=== PATIENT | female | born 1950 | race Two or more races ===

== ENCOUNTER 2024-07-24 09:29 | Inpatient (IN) | payer MEDICARE, MEDICAID ==
[~2024-07-24] VITALS: Ht 167.6 cm; Wt 69.5 kg
[~2024-07-24 09:29] MED LIST: ACET-1080 PO; ALPR0.5T PO; APIX2.5T PO; CITA10TA8 PO; FAMO-161 PO; LOSA-534 PO; OMEP-448 PO; OMEP20TA PO; ROSU20TA14 PO
[2024-07-24] MEDS: TRANEXAMIC ACID 20 ML ONE (09:52)
[2024-07-24] MEDS: VANCOMYCIN HCL 1000 MG VL ONE (09:53)
[2024-07-24] MEDS ORDERED: fentaNYL CITRATE 100 MCG/2 ML VL ONE (10:08)
[2024-07-24] MEDS ORDERED: PROPOFOL 10 MG/ML 20 ML IV ONE ×2 (10:08→11:58)
[2024-07-24] MEDS ORDERED: MIDAZOLAM HCL 2MG/2ML 2ml VIAL (1mg/ml) ONE (10:08)
[2024-07-24] MEDS: ceFAZolin 2 GM/D5W100ml 100 ML IV ONE (10:09)
[2024-07-24] MEDS: CEFEPIME 1GM/ 50ML 50 ML IV ONE (10:13)
[2024-07-24] MEDS: ROPIVACAINE 0.5% (5MG/ML) 20ML AMPULE IJ ONE (10:40)
[2024-07-24] MEDS: SODIUM CHLORIDE 0.9% 1,000 ML IV SCH (11:30)
[2024-07-24] MEDS ORDERED: ALPRAZolam 0.5 MG TAB PO PRN (12:30)
[2024-07-24] MEDS ORDERED: ONDANSETRON HCL 4 MG/2 ML VIAL IV PRN (12:30)
--- NOTE | 2024-07-24 12:30 | DVHOP2 ---
Operative Report - 2 Report Details Date: 07/24/24 Preop Diagnosis: Right hip degenerative arthritis Postop Diagnosis: Same Surgeon: Layton Vasquez MD Aeronautical Design Engineer: Mouna MAC Anesthesiologist: Hiral Anesthesia: Regional Drains: Shiraz closed wound suction Implant: DatJoy hip size 13 stem, minus four neck length, 36 ceramic head, 50 acetabular shell with flat polyethylene liner Consent: The patient was informed of the risks and benefits of the procedure. These include but are not limited to complications of anesthesia, postoperative infection, incomplete relief of symptoms, recurrence of symptoms, damage to blood vessels, nerves and tendons, deep venous thrombosis, pulmonary embolism and possible need for repeat surgery in the future. Complications: none Estimated Blood Loss: 200 cc Fluids: See anesthesia record Findings: Denuded cartilage, eburnated bone, head deformity, osteophytes Indications for Surgery: Right hip degenerative arthritis with severe pain and functional impairment despite nonoperative management Name of Procedure Performed Right total hip arthroplasty Procedure Details Procedure Details: The patient was brought to the operating room and given spinal anesthetic with adequate analgesia obtained. The patient was positioned lateral decubitus with the operative side up, stabilized with hip positioners. Axillary roll applied and lower extremities well-padded. Preop patient received IV Ancef, cefepime and IV tranexamic acid. Surgical timeout was performed verifying patient, laterality and procedure. The hip and lower extremity were prepped and draped in sterile fashion. Incision was made over the greater trochanter. Subcutaneous dissection and hemostasis were performed with Bovie and aqua manti s. I identified the fascia which was incised with Bovie and Charnley retractor inserted. I identified the gluteus medius that was split at the junction of its anterior and middle thirds with Bovie then incised off the anterior greater trochanter. I incised the anterior gluteus minimus which was elevated off the capsule. I elevated the reflected head of the rectus. I then performed anterior capsulectomy with Bovie. I extended capsular incision posterior medially and superior laterally. The head was dislocated. Femoral neck cut was made with saw and head removed. Head diameter was calipered on the back table. I adjusted retractors to expose the acetabulum. I circumferentially removed labral tissue with Bovie. I removed foveal tissue with Bovie, curette and rongeur. I then began reaming sequentially paying attention to inclination and version as I went. I trialed which was stable so acetabular implant was brought into the field and tapped into the acetabulum with good fixation achieved. I then brought up the flat liner which was spun to make sure there was no soft tissue entrapment then tapped in and stability verified. I then brought my attention to the proximal femur. The leg was placed in the sterile bag anteriorly. I cleaned up soft tissue at the greater trochanter shoulder with Bovie. I then used a rongeur to clip the lateral neck. I then used a box osteotome, canal finder and lateralizing rasp. I sequentially broached to size 13. I trialed with a [0] neck length and [36] head which was stable. Intraoperative AP pelvis x-ray was obtained to verify length, offset and implant size. The hip was dislocated. Neck and head trial removed. I tapped down the stem little bit. I revised the femoral neck cut with calcar planer. broach was removed. I tapped in the femoral implant with good fixation achieved. I again trialed and decided on the minus four neck length based on stability and previous x-ray. I cleaned and dried the Otero taper and tapped on the ceramic head. The hip was again reduced and tested for stability which was good. I irrigated with xperience. I placed a 2 grams of vancomycin in the deep and superficial wound. I repaired the minimus and medius to the anterior greater trochanter with #[5] FiberWire in running fashion . I oversewed the repair with 0 Vicryl. I repaired the fascia with #1 Ethibond interrupted [id number]. Deep subcutaneous tissue was closed with 0 Vicryl. Superficial subcutaneous tissue was closed with 2-0 Vicryl. The skin was closed with toan. I then applied the Shiraz closed wound suction. Patient tolerated the procedure well and was brought to the recovery room in stable condition. Condition Stable Disposition Still a Patient LAYTON VASQUEZ MD Jul 24, 2024 12:30
[2024-07-24 12:42] VITALS: O2SAT 97
--- NOTE | 2024-07-24 12:42 | DVH ---
CLINICAL INDICATION: SURGERY TECHNIQUE: 1 radiographic views of the pelvis were obtained. Comparison: None FINDINGS/IMPRESSION: Status post right hip arthroplasty.
[2024-07-24] MEDS ORDERED: MEPERIDINE HCL (25 MG/ML) 1ML VIAL IV PRN (13:00)
[2024-07-24] MEDS: ONDANSETRON HCL 4 MG/2 ML VIAL IV ONE (13:00)
[2024-07-24] MEDS: ACETAMINOPHEN IV 100 ML IV ONE (13:02)
[2024-07-24] MEDS: HYDROmorphone HCL 2 MG/ML VL/or syr ONE (13:02)
[2024-07-24] MEDS: HYDROmorphone HCL 2 MG/ML VL/or syr IV PRN (13:05)
--- NOTE | 2024-07-24 13:35 | DVH ---
CLINICAL INDICATION: postop TECHNIQUE: XY PELVIS AP Comparison: None FINDINGS: There is no evidence of acute fracture or dislocation. Bilateral total hip arthroplasties. The alignment is anatomical. There is no radiopaque foreign body. IMPRESSION: Bilateral total hip arthroplasties. Postsurgical changes involving the right hip
[2024-07-24] MEDS: ACETAMINOPHEN IV 1000 MG/100ML (10MG/ML) IV PRN (13:37)
[2024-07-24 15:42] VITALS: BP 96/56; PULSE 63; RESP 19; TEMP 98.2; O2SAT 99
[2024-07-24 18:01] VITALS: BP 96/56; PULSE 63; RESP 19; TEMP 98.2; O2SAT 99
[2024-07-24] MEDS: KETOROLAC TROMETH 30 MG/ML 1ML VIAL IV SCH (18:20)
[2024-07-24] MEDS: ACETAMINOPHEN 325 MG TAB PO SCH (18:20)
[2024-07-24] MEDS: ceFAZolin 2 GM/D5W50ml 50 ML IV SCH (20:00)
[2024-07-24 21:00] VITALS: BP_SYST 82; BP_SYST 94; BP_DIAS 33; BP_DIAS 43; PULSE 65; RESP 17; TEMP 98.2; O2SAT 100
[2024-07-24 22:00] VITALS: BP 100/52
[2024-07-24] MEDS: ATORVASTATIN 20 MG TAB PO SCH (23:11)
[2024-07-24] MEDS: PREGABALIN 25 MG CAP PO SCH (23:12)
[2024-07-24 23:35] VITALS: BP 119/58
[2024-07-24] MEDS: oxyCODONE HCL 5MG TAB PO PRN ×2 (23:45)
[2024-07-25] VITALS (14 sets, daily range): BP systolic 8–111; BP diastolic 34–54; PULSE 61–84; RESP 15–18; TEMP 97.6–98.7; O2SAT 95–100
[2024-07-25] MEDS: SODIUM CHLORIDE 0.9% 500 ML IV ONE (05:00)
[2024-07-25 07:35] LABS: Basophils # (auto) 0 10 ^3/uL (0-0.2); Basophils % (auto) 0.4 % (0.0-2.0); Eosinophils # (auto) 0 10 ^3/uL (0-0.8); Eosinophils % (auto) 0.3 % (0.0-7.0); Hematocrit 31.5 % (36.0-46.0); Hemoglobin 10.6 g/dL (12.2-16.2); Lymphocytes # (auto) 0.8 10 ^3/uL (0.4-5.4); Lymphocytes % (auto) 12.2 % (10.0-50.0); Mean Corpuscular Hemoglobin 35.3 pg (28.0-32.0); Mean Corpuscular Hgb Conc. 33.6 g/dL (32.0-36.0); Mean Corpuscular Volume 105.1 fL (80.0-100.0); Monocytes # (auto) 0.9 10 ^3/uL (0-1.3); Neutrophils # (auto) 4.6 10 ^3/uL (1.6-8.6); Neutrophils % (auto) 73.1 % (37.0-80.0); Platelet Count (auto) 202 10^3/uL (140-450); Red Cell Distribution Width 14.2 % (11.8-14.3); White Blood Cell 6.3 10^3/uL (4.4-10.8)
[2024-07-25 07:39] LABS: Anion Gap 7 (5-15); Carbon Dioxide 24 mmol/L (20-31); Chloride 110 mmol/L (98-107); Potassium 3.5 mmol/L (3.5-5.1); Sodium 141 mmol/L (136-145)
[2024-07-25 07:40] LABS: Calcium 9.1 mg/dL (8.7-10.4)
[2024-07-25 07:45] LABS: BUN/Creatinine Ratio 15.4 (10.0-20.0); Blood Urea Nitrogen 12 mg/dL (9-23); Glucose 112 mg/dL (74-106)
[2024-07-25] MEDS: FAMOTIDINE 20 MG TAB PO SCH (09:40)
[2024-07-25] MEDS: CITALOPRAM HYDROBR 20 MG TAB PO SCH (09:42)
[2024-07-25] MEDS: PANTOPRAZOLE 40 MG TAB PO SCH (09:43)
[2024-07-25] MEDS: APIXABAN 2.5 MG TAB PO SCH (09:43)
[2024-07-25] MEDS: LOSARTAN POTASSIUM 50 MG TAB PO SCH (09:46)
--- NOTE | 2024-07-25 09:47 | DVHPN2 ---
Progress Note - Dictate Date Seen: Jul 25, 2024 Medical Necessity Reason Pt with a Central, PICC or Fol: No Subjective Patient was lying comfortably in bed during my evaluation reports some postoperative hip pain that was improved with the help of pain medication but given her low blood pressure has been limited on how much she is able to take and is currently in a lot of pain. Patient denies having gotten up and walked with physical therapy as of yet and has only tried performing gentle [id number] exercises while in bed which is limited due to the pain. Patient is otherwise feeling well denying any other complaints or concerns during my evaluation. vital signs Vital Sign Date Time Temp Pulse Resp B/P (MAP) Pulse Ox O2 Delivery O2 Flow Rate FiO2 07/25/24 05:00 98.5 61 15 91/49 (63) 98 98.5 07/24/24 20:00 Room Air* 0 21 Total Intake and Output 07/24/24 07/24/24 07/25/24 15:00 23:00 07:00 Intake Total 100 ml 0 ml 1500 ml Output Total 0 ml Balance 100 ml 0 ml 1500 ml medications Current Medications Medications Dose Ordered Sig/Ramon Route Start Time Stop Time Status Last Admin Dose Admin Alprazolam 0.5 mg TID PRN PO 07/24/24 12:30 Famotidine 20 mg DAILY PO 07/25/24 10:00 Losartan Potassium 50 mg DAILY PO 07/25/24 10:00 Patient Own Medication 40 mg DAILY PO 07/25/24 10:00 UNV Patient Own Medication 20 mg DAILY PO 07/25/24 10:00 UNV Citalopram Hydrobromide 40 mg DAILY PO 07/25/24 10:00 Pregabalin 50 mg BID PO 07/24/24 22:00 07/24/24 23:12 50 MG Apixaban 2.5 mg BID PO 07/25/24 10:00 08/29/24 09:59 Sodium Chloride 1,000 ml @ 125 mls/hr Q8H IV 07/24/24 11:30 07/24/24 23:13 125 MLS/HR Acetaminophen 650 mg Q6HP PO 07/24/24 18:00 07/25/24 06:02 650 MG Ketorolac Tromethamine 15 mg Q6HR IV 07/24/24 18:00 07/29/24 17:59 07/25/24 06:01 15 MG Ondansetron HCl 4 mg Q4HP PRN IV 07/24/24 12:30 Oxycodone HCl 5 mg Q4HP PRN PO 07/24/24 11:30 Oxycodone HCl 10 mg Q4HP PRN PO 07/24/24 11:30 07/24/24 23:45 10 MG Atorvastatin Calcium 10 mg HS PO 07/24/24 22:00 07/24/24 23:11 10 MG Pantoprazole Sodium 40 mg DAILY PO 07/25/24 10:00 objective A&O x4 in no acute distress Hip range of motion grossly limited with pain on movement Shiraz dressing clean, dry, intact, and maintaining suction No distal edema or calf tenderness to palpation Neurovascularly intact with cap refill less than 2 seconds laboratory and microbiology Laboratory Tests 07/25/24 07:07 Test 07/25/24 07:07 Range/Units Serum Glucose 112 H 74-106 mg/dL Assessment/Plan Continue current management as well as physical therapy and pain control. Advised patient to remain weight-bearing as tolerated with the assistance of a walker. We will reconvene with the patient tomorrow for re-evaluation and possible discharge home versus transferred to long term facility pending how well patient is able to walk with physical therapy today. Plan discussed with: Patient SPARKLE TORRES Jul 25, 2024 09:47
[2024-07-25] MEDS ORDERED: PATIENTS OWN MEDICATION (Rosuvastatin Calcium (Crestor) 20 MG) PO SCH (10:00)
[2024-07-25] MEDS ORDERED: PATIENTS OWN MEDICATION (Omeprazole (Gnp Omeprazole) 40 MG) PO SCH (10:00)
--- NOTE | 2024-07-25 15:41 | DVHPN2 ---
Subjective Patient reporting right hip pain. Reviewed: Care Plan, H&P, Labs, Medications Changes from previous H/P or p: No Changes General: Per HPI Objective Vitals Vital Signs Date Time Temp Pulse Resp B/P (MAP) Pulse Ox O2 Delivery O2 Flow Rate FiO2 07/25/24 12:44 98.1 07/25/24 08:00 61 16 98 Room Air* 0 21 07/25/24 05:00 91/49 (63) Intake/Output Intake and Output 07/25/24 07:00 Intake Total 1600 ml Output Total 0 ml Balance 1600 ml Intake Oral 0 ml IV Total 1600 ml Output Urine Total 0 ml # Voids 2 General Appearance: Alert, Oriented X3, Cooperative, mild distress HEENT: Atraumatic, PERRLA Lungs: Clear to auscultation, Normal air movement Cardiovascular: Normal S1, Normal S2 Abdomen: Normal bowel sounds Genitourinary: No Apparent Abnormalities Musculoskeletal: Normal sensory function, Normal motor function Extremities: Other (Right intact to right) Psych/Mental Status: Mental status NL, Mood NL Medications Current Medications Medications Dose Ordered Sig/Ramon Route Start Time Stop Time Status Last Admin Dose Admin Alprazolam 0.5 mg TID PRN PO 07/24/24 12:30 Famotidine 20 mg DAILY PO 07/25/24 10:00 07/25/24 09:40 20 MG Losartan Potassium 50 mg DAILY PO 07/25/24 10:00 Patient Own Medication 40 mg DAILY PO 07/25/24 10:00 UNV Patient Own Medication 20 mg DAILY PO 07/25/24 10:00 UNV Citalopram Hydrobromide 40 mg DAILY PO 07/25/24 10:00 07/25/24 09:42 40 MG Pregabalin 50 mg BID PO 07/24/24 22:00 07/25/24 09:41 50 MG Apixaban 2.5 mg BID PO 07/25/24 10:00 08/29/24 09:59 07/25/24 09:43 2.5 MG Sodium Chloride 1,000 ml @ 125 mls/hr Q8H IV 07/24/24 11:30 07/25/24 12:45 125 MLS/HR Acetaminophen 650 mg Q6HP PO 07/24/24 18:00 07/25/24 12:44 650 MG Ketorolac Tromethamine 15 mg Q6HR IV 07/24/24 18:00 07/29/24 17:59 07/25/24 12:39 15 MG Ondansetron HCl 4 mg Q4HP PRN IV 07/24/24 12:30 Oxycodone HCl 5 mg Q4HP PRN PO 07/24/24 11:30 07/25/24 09:44 5 MG Oxycodone HCl 10 mg Q4HP PRN PO 07/24/24 11:30 07/25/24 14:54 10 MG Atorvastatin Calcium 10 mg HS PO 07/24/24 22:00 07/24/24 23:11 10 MG Pantoprazole Sodium 40 mg DAILY PO 07/25/24 10:00 07/25/24 09:43 40 MG Laboratory Results Laboratory Tests 07/25/24 07:07 Chemistry Test 07/25/24 07:07 Calcium Level 9.1 mg/dL (8.7-10.4) Labs and/or images reviewed: Labs reviewed by me, Image(s) reviewed by me Assessment/Plan Assessment/Plan Impression: -status post total right hip replacement -postoperative hypotension, probably secondary to spinal anesthetic -primary hypertension -dyslipidemia -tobacco dependence -impression Plan: -pain management -continue IV hydration, trial of 25% albumin -hold antihypertensives -bronchodilators -restart statin -repeat labs in a.m. -physical therapy consultation Total time spent with patient discussing and formulating plan of care: 35 minutes. This medical document was created using an electronic medical record system with valuescope dictation system. Although this document has been carefully reviewed, there may still be some phonetic and typographical errors. These areas are purely typographical due to imperfections of the software programs, and do not reflect any compromise in the patient's medical care. Plan discussed with: Patient, Other (RN) My Orders Orders - BERTA FRENCH NP Procedure Category Date Status Time Albumin Ivpb PHA 07/25/24 Transmitted 15:45 Date of Service: Jul 25, 2024 Billing Provider: BERTA FRENCH NP Common Visit Codes: [id number] INP/OBS CARE(HIGH) BERTA FRENCH NP Jul 25, 2024 15:41
[2024-07-25] MEDS ORDERED: IPRATROPIUM BROM 0.5 MG/2.5ML INH SOL NEB PRN (15:45)
[2024-07-25] MEDS ORDERED: ALBUTEROL SULF 2.5 MG/0.5ML(0.5%) NEB SOLN NEB PRN (15:45)
[2024-07-25] MEDS: ALBUTEROL SULF 2.5 MG/0.5ML(0.5%) NEB SOLN ONE (15:58)
[2024-07-25] MEDS: ALBUTEROL SULF 2.5 MG/0.5ML(0.5%) NEB SOLN NEB ONE (16:25)
[2024-07-25] MEDS: ALBUMIN 25% 50 ML IV ONE (16:49)
[2024-07-26] VITALS (12 sets, daily range): BP systolic 9–134; BP diastolic 15–61; PULSE 68–99; RESP 17–20; TEMP 97.8–99.9; O2SAT 93–99
--- NOTE | 2024-07-26 13:34 | DVHPN2 ---
Subjective Patient reporting right hip pain. Reviewed: Care Plan, H&P, Labs, Medications Changes from previous H/P or p: No Changes General: Per HPI Objective Vitals Vital Signs Date Time Temp Pulse Resp B/P (MAP) Pulse Ox O2 Delivery O2 Flow Rate FiO2 07/26/24 13:00 99.9 74 18 121/55 (77) 97 99.9 07/26/24 09:33 Room Air* 0 21 Intake/Output Intake and Output 07/26/24 07:00 Intake Total 3772 ml Balance 3772 ml Intake Oral 1522 ml IV Total 2250 ml # Voids 2 General Appearance: Alert, Oriented X3, Cooperative, mild distress HEENT: Atraumatic, PERRLA Lungs: Clear to auscultation, Normal air movement Cardiovascular: Normal S1, Normal S2 Abdomen: Normal bowel sounds Genitourinary: No Apparent Abnormalities Musculoskeletal: Normal sensory function, Normal motor function Extremities: Other Psych/Mental Status: Mental status NL, Mood NL Medications Current Medications Medications Dose Ordered Sig/Ramon Route Start Time Stop Time Status Last Admin Dose Admin Alprazolam 0.5 mg TID PRN PO 07/24/24 12:30 Famotidine 20 mg DAILY PO 07/25/24 10:00 07/26/24 09:43 20 MG Patient Own Medication 40 mg DAILY PO 07/25/24 10:00 UNV Patient Own Medication 20 mg DAILY PO 07/25/24 10:00 UNV Citalopram Hydrobromide 40 mg DAILY PO 07/25/24 10:00 07/26/24 09:43 40 MG Pregabalin 50 mg BID PO 07/24/24 22:00 07/26/24 09:44 50 MG Apixaban 2.5 mg BID PO 07/25/24 10:00 08/29/24 09:59 07/26/24 09:43 2.5 MG Sodium Chloride 1,000 ml @ 125 mls/hr Q8H IV 07/24/24 11:30 07/26/24 05:35 125 MLS/HR Acetaminophen 650 mg Q6HP PO 07/24/24 18:00 07/26/24 05:34 650 MG Ketorolac Tromethamine 15 mg Q6HR IV 07/24/24 18:00 07/29/24 17:59 07/26/24 12:46 15 MG Ondansetron HCl 4 mg Q4HP PRN IV 07/24/24 12:30 Oxycodone HCl 5 mg Q4HP PRN PO 07/24/24 11:30 07/26/24 09:42 5 MG Oxycodone HCl 10 mg Q4HP PRN PO 07/24/24 11:30 07/25/24 14:54 10 MG Atorvastatin Calcium 10 mg HS PO 07/24/24 22:00 07/25/24 22:08 10 MG Pantoprazole Sodium 40 mg DAILY PO 07/25/24 10:00 07/26/24 09:43 40 MG Albuterol 2.5 mg Q4HPRN PRN NEB 07/25/24 15:45 Ipratropium [place] 0.5 mg Q4HPRN PRN NEB 07/25/24 15:45 Laboratory Results Laboratory Tests 07/25/24 07:07 Labs and/or images reviewed: Labs reviewed by me, Image(s) reviewed by me Assessment/Plan Assessment/Plan Impression: -status post total right hip replacement -postoperative hypotension, probably secondary to spinal anesthetic -primary hypertension -dyslipidemia -tobacco dependence -impression Plan: Events: Patient has resolution of her postoperative hypotension. Patient was still complains of pain, has not ambulated. Discussed with primary nurse to coordinate pain management with physical therapy. -pain management -discontinue IV fluid -bronchodilators -continue statin. Blood pressure improved, continue to hold antihypertensives at this time. -physical therapy consultation Total time spent with patient discussing and formulating plan of care: 35 minutes. This medical document was created using an electronic medical record system with m2fx dictation system. Although this document has been carefully reviewed, there may still be some phonetic and typographical errors. These areas are purely typographical due to imperfections of the software programs, and do not reflect any compromise in the patient's medical care. Plan discussed with: Patient, Other (RN) My Orders Orders - BERTA FRENCH NP Procedure Category Date Status Time Albuterol Medneb PHA 07/25/24 In Process (Ventolin Medneb) 15:45 Ipratropium Medneb PHA 07/25/24 In Process (Atrovent Medneb) 15:45 Date of Service: Jul 26, 2024 Billing Provider: BERTA FRENCH NP Common Visit Codes: [id number] INP/OBS CARE(HIGH) BERTA FRENCH ROLLS BAKER Jul 26, 2024 13:34
[2024-07-26] MEDS ORDERED: ACETAMINOPHEN 325 MG TAB PO PRN (13:45)
--- NOTE | 2024-07-26 14:18 | DVHDS2 ---
Discharge Summary Date of Admission Jul 24, 2024 at 11:28 Date of Discharge: Jul 26, 2024 Labs/Diagnostic Data: Laboratory Results Test 07/25/24 07:07 07/25/24 06:22 White Blood Count 6.3 10^3/uL (4.4-10.8) Red Blood Count 3.00 10^6/uL (4.0-5.20) Hemoglobin 10.6 g/dL (12.2-16.2) Hematocrit 31.5 % (36.0-46.0) Mean Corpuscular Volume 105.1 fL (80.0-100.0) Mean Corpuscular Hemoglobin 35.3 pg (28.0-32.0) Mean Corpuscular Hemoglobin Concent 33.6 g/dL (32.0-36.0) Red Cell Distribution Width 14.2 % (11.8-14.3) Platelet Count 202 10^3/uL (140-450) Mean Platelet Volume 7.2 fL (6.9-10.8) Neutrophils (%) (Auto) 73.1 % (37.0-80.0) Lymphocytes (%) (Auto) 12.2 % (10.0-50.0) Monocytes (%) (Auto) 14.0 % (0.0-12.0) Eosinophils (%) (Auto) 0.3 % (0.0-7.0) Basophils (%) (Auto) 0.4 % (0.0-2.0) Neutrophils # (Auto) 4.6 10 ^3/uL (1.6-8.6) Lymphocytes # (Auto) 0.8 10 ^3/uL (0.4-5.4) Monocytes # (Auto) 0.9 10 ^3/uL (0-1.3) Eosinophils # (Auto) 0 10 ^3/uL (0-0.8) Basophils # (Auto) 0 10 ^3/uL (0-0.2) Nucleated Red Blood Cells 0.0 % Sodium Level 141 mmol/L (136-145) Potassium Level 3.5 mmol/L (3.5-5.1) Chloride Level 110 mmol/L (98-107) Carbon Dioxide Level 24 mmol/L (20-31) Anion Gap 7 (5-15) Blood Urea Nitrogen 12 mg/dL (9-23) Creatinine 0.78 mg/dL (0.550-1.02) Glomerular Filtration Rate Calc 81 mL/min (>90) BUN/Creatinine Ratio 15.4 (10.0-20.0) Serum Glucose 112 mg/dL (74-106) Calcium Level 9.1 mg/dL (8.7-10.4) POC Glucose 104 mg/dl (70-106) Other Laboratory Tests 07/25/24 07:07 Brief Hx & Hospital Course: Patient was brought to the hospital on Tuesday to undergo a right total hip arthroplasty. She tolerated the procedure well without complications and was kept overnight for postoperative observation. She denied any overnight events and has remained medically stable but was experiencing severe postoperative hip pain that was limiting her ambulation was only able to take a few steps at bedside yesterday as well as today. Given her limited the patient has been with her recovery we have recommended that the patient be transfer to SNF for further assistance with her physical therapy and ambulation during the postacute phase of her recovery. Patient understood and agreed. Condition at Discharge: Stable Final Diagnosis/Problems List Same Discharge Disposition: Snf Facility Discharge Instruct/Medications Diet: Regular Activity: See Comment Activity comment: Patient to remain WBAT with the assistance of a walker and to maintain her dressings clean, dry, intact, and maintaining suction. Follow Up/Referral: Patient to follow up with our office in 10-14 days for her first postoperative evaluation. Medications: Rx sent via our outpatient EMR system. Discharge Statement: "Patient was advised to return to the ER or call 911 if any headaches, dizziness, shortness of breath, chest pain, abdominal pain, bleeding, fevers, or worsening of medical condition. Patient was counseled about treatment plan, medications, possible side effects, patientverbalized understanding. All questions were answered to the best of my ability. This discharge took greater then 30 minutes in planning, reviewing documentation, counseling the patient, and discussing with other team members." ASSESSMENT ASSESSMENT Assessment Same SPARKLE TORRES Jul 26, 2024 14:18
--- NOTE | 2024-07-26 14:20 | DVHPN2 ---
Progress Note - Dictate Date Seen: Jul 26, 2024 Medical Necessity Reason Pt with a Central, PICC or Fol: No Subjective Patient was lying comfortably in bed during my evaluation reports some continued postoperative hip pain that is somewhat improved with the help of pain medication. Patient reports getting up and walking with physical therapy but was only able to take a few steps near bedside with the help of her walker and back to her bed due to the pain. Patient is otherwise feeling well denying any other complaints or concerns during my evaluation. vital signs Vital Sign Date Time Temp Pulse Resp B/P (MAP) Pulse Ox O2 Delivery O2 Flow Rate FiO2 07/26/24 13:00 99.9 74 18 121/55 (77) 97 99.9 07/26/24 09:33 Room Air* 0 21 Total Intake and Output 07/25/24 07/25/24 07/26/24 15:00 23:00 07:00 Intake Total 1000 ml 1272 ml 1500 ml Balance 1000 ml 1272 ml 1500 ml medications Current Medications Medications Dose Ordered Sig/Ramon Route Start Time Stop Time Status Last Admin Dose Admin Alprazolam 0.5 mg TID PRN PO 07/24/24 12:30 Famotidine 20 mg DAILY PO 07/25/24 10:00 07/26/24 09:43 20 MG Patient Own Medication 40 mg DAILY PO 07/25/24 10:00 UNV Patient Own Medication 20 mg DAILY PO 07/25/24 10:00 UNV Citalopram Hydrobromide 40 mg DAILY PO 07/25/24 10:00 07/26/24 09:43 40 MG Pregabalin 50 mg BID PO 07/24/24 22:00 07/26/24 09:44 50 MG Apixaban 2.5 mg BID PO 07/25/24 10:00 08/29/24 09:59 07/26/24 09:43 2.5 MG Ketorolac Tromethamine 15 mg Q6HR IV 07/24/24 18:00 07/29/24 17:59 07/26/24 12:46 15 MG Ondansetron HCl 4 mg Q4HP PRN IV 07/24/24 12:30 Oxycodone HCl 5 mg Q4HP PRN PO 07/24/24 11:30 07/26/24 09:42 5 MG Oxycodone HCl 10 mg Q4HP PRN PO 07/24/24 11:30 07/25/24 14:54 10 MG Atorvastatin Calcium 10 mg HS PO 07/24/24 22:00 07/25/24 22:08 10 MG Pantoprazole Sodium 40 mg DAILY PO 07/25/24 10:00 07/26/24 09:43 40 MG Albuterol 2.5 mg Q4HPRN PRN NEB 07/25/24 15:45 Ipratropium [place] 0.5 mg Q4HPRN PRN NEB 07/25/24 15:45 Acetaminophen 650 mg Q6HP PRN PO 07/26/24 13:45 objective A&O x4 in no acute distress Hip range of motion grossly limited with pain on movement Shiraz dressing clean, dry, intact, and maintaining suction No distal edema or calf tenderness to palpation Neurovascularly intact with cap refill less than 2 seconds laboratory and microbiology Laboratory Tests 07/25/24 07:07 Test 07/25/24 07:07 Range/Units Serum Glucose 112 H 74-106 mg/dL Assessment/Plan Patient to be transferred to a [facility] facility for further assistance with the post acute phase of her rehabilitation as she is still significantly limited with her ambulation and physical therapy due to postoperative hip pain. Advised the patient to remain weight-bearing as tolerated with the assistance of a walker and to maintain her dressings clean, dry, intact, and maintaining suction. I also instructed the patient to follow up with our office in 10-14 days for her 1st postoperative evaluation and to call us if she has any questions or concerns. Rx sent via our outpatient EMR system. She understood and agreed. Plan discussed with: Patient SPARKLE TORRES Jul 26, 2024 14:20
[2024-07-27 00:25] VITALS: PULSE 64; RESP 18; O2SAT 98
[2024-07-27 00:35] VITALS: PULSE 62; RESP 20; O2SAT 99
[2024-07-27 05:00] VITALS: BP 158/72; PULSE 81; RESP 19; TEMP 98; O2SAT 94
[2024-07-27 07:03] VITALS: O2SAT 94
--- NOTE | 2024-07-27 08:00 | DVHPN2 ---
Progress Note - Dictate Date Seen: Jul 27, 2024 Medical Necessity Reason Pt with a Central, PICC or Fol: No Subjective Patient was lying comfortably in bed during my evaluation reports some continued postoperative hip pain that continues to be somewhat improved with the help of pain medication. Patient reports getting up and walking with physical therapy but was only able to take a few steps near bedside with the help of her walker and back to her bed due to the pain. Patient is otherwise feeling well denying any other complaints or concerns during my evaluation. vital signs Vital Sign Date Time Temp Pulse Resp B/P (MAP) Pulse Ox O2 Delivery O2 Flow Rate FiO2 07/27/24 07:56 Room Air* 0 21 07/27/24 05:00 98.0 81 19 158/72 (100) 94 98.0 Total Intake and Output 07/26/24 07/26/24 07/27/24 15:00 23:00 07:00 Intake Total 900 ml 800 ml Balance 900 ml 800 ml medications Current Medications Medications Dose Ordered Sig/Ramon Route Start Time Stop Time Status Last Admin Dose Admin Alprazolam 0.5 mg TID PRN PO 07/24/24 12:30 Famotidine 20 mg DAILY PO 07/25/24 10:00 07/26/24 09:43 20 MG Patient Own Medication 40 mg DAILY PO 07/25/24 10:00 UNV Patient Own Medication 20 mg DAILY PO 07/25/24 10:00 UNV Citalopram Hydrobromide 40 mg DAILY PO 07/25/24 10:00 07/26/24 09:43 40 MG Pregabalin 50 mg BID PO 07/24/24 22:00 07/26/24 21:21 50 MG Apixaban 2.5 mg BID PO 07/25/24 10:00 08/29/24 09:59 07/26/24 21:20 2.5 MG Ketorolac Tromethamine 15 mg Q6HR IV 07/24/24 18:00 07/29/24 17:59 07/27/24 06:19 15 MG Ondansetron HCl 4 mg Q4HP PRN IV 07/24/24 12:30 Oxycodone HCl 5 mg Q4HP PRN PO 07/24/24 11:30 07/26/24 15:13 5 MG Oxycodone HCl 10 mg Q4HP PRN PO 07/24/24 11:30 07/25/24 14:54 10 MG Atorvastatin Calcium 10 mg HS PO 07/24/24 22:00 07/26/24 21:20 10 MG Pantoprazole Sodium 40 mg DAILY PO 07/25/24 10:00 07/26/24 09:43 40 MG Albuterol 2.5 mg Q4HPRN PRN NEB 07/25/24 15:45 Ipratropium [place] 0.5 mg Q4HPRN PRN NEB 07/25/24 15:45 Acetaminophen 650 mg Q6HP PRN PO 07/26/24 13:45 objective A&O x4 in no acute distress Hip range of motion grossly limited with pain on movement Shiraz dressing clean, dry, intact, and maintaining suction No distal edema or calf tenderness to palpation Neurovascularly intact with cap refill less than 2 seconds laboratory and microbiology Laboratory Tests 07/25/24 07:07 Test 07/25/24 07:07 Range/Units Serum Glucose 112 H 74-106 mg/dL Assessment/Plan Patient to be transferred to a long term facility for further assistance with the post acute phase of her rehabilitation as she is still significantly limited with her ambulation and physical therapy due to postoperative hip pain. I spoke with the patient's nurse who reports that she is currently scheduled to be transferred later this afternoon. Advised the patient to remain weight- bearing as tolerated with the assistance of a walker and to maintain her dressings clean, dry, intact, and maintaining suction. I also instructed the patient to follow up with our office in 10-14 days for her 1st postoperative evaluation and to call us if she has any questions or concerns. Rx sent via our outpatient EMR system. She understood and agreed. Plan discussed with: Patient SPARKLE TORRES Jul 27, 2024 08:00
[2024-07-27 09:30] VITALS: O2SAT 95
== END 2024-07-27 10:00 | DRG 470 ==
LOC: SUR 09:29 → OVERFLOW 11:28 → WEST WING 14:45
PROVIDERS: ADMIT Orthopaedic Surgery; ATTEND Nurse Practitioner Acute Care
PROC: 0SR904Z Replacement of Right Hip Joint with Ceramic on Polyethylene Synthetic Substitute, Open Approach (ICD-10-PCS; principal; 2024-07-24 10:54)
DX: M16.11 Unilateral primary osteoarthritis, right hip (principal); E78.5 Hyperlipidemia, unspecified; F17.200 Nicotine dependence, unspecified, uncomplicated; I10 Essential (primary) hypertension; I95.9 Hypotension, unspecified
CPT/HCPCS: 36415; 72170; 73501; 80048; 82962; 85025; 86850; 86900; 86901; 94640; 97110; 97116; 97163; 97530; G0378; J0131; J1885; J2250; J2704